=== PATIENT | female | born 1970 | race American Indian/Alaskan Native ===

== ENCOUNTER 2018-06-15 08:09 | Day surgery (SDC) | payer BC ==
[~2018-06-15 08:09] MED LIST: NACL 0.9% 1000 ML 1,000 ML IV SCH
[2018-06-15] MEDS ORDERED: ANCEF/STERILE WATER 2 GM/20 ML 2 GM/20 ML SYRINGE IV NR (09:00)
[2018-06-15 09:55] LABS: Basophils % (Auto) 0.4 % (0.0-1.8); Eosinophils # (Auto) 0.1 K/mm3 (0.0-0.4); Eosinophils % (Auto) 2.5 % (0.0-4.3); Hematocrit 37.7 % (30.3-42.9); Hemoglobin 12.3 gm/dl (10.1-14.3); Lymphocytes # (Auto) 1.6 K/mm3 (1.2-5.4); Lymphocytes % (Auto) 31.1 % (13.4-35.0); Mean Corpuscular HGB Conc 33 % (30-34); Mean Corpuscular Hemoglobin 27 pg (28-32); Mean Corpuscular Volume 84 fl (79-97); Monocytes # (Auto) 0.5 K/mm3 (0.0-0.8); Monocytes % (Auto) 9.9 % (0.0-7.3); Platelet Count 249 K/mm3 (140-440); Red Blood Count 4.51 M/mm3 (3.65-5.03); Red Cell Distribution Width 14.9 % (13.2-15.2)
[2018-06-15 10:09] LABS: INR 1.37 (0.87-1.13)
[2018-06-15 10:12] LABS: BUN/Creatinine Ratio 11; Blood Urea Nitrogen 8 mg/dL (7-17); Hemolysis Index 1
[2018-06-15] MEDS ORDERED: HEPARIN/NS 5000 UNIT/500ML(CATH LAB) 1,000 ML IR ONE (11:53)
[2018-06-15] MEDS ORDERED: HEPARIN 10,000 UNITS/10 ML ONE ×2 (11:53→13:33)
[2018-06-15] MEDS: VERSED ONE ×3 (12:22→13:50)
[2018-06-15] MEDS: SUBLIMAZE ONE ×4 (12:22→13:49)
[2018-06-15] MEDS: XYLOCAINE 2% INFILTRATI ONE ×2 (12:27→12:31)
[2018-06-15] MEDS: BENADRYL ONE ×2 (12:44→13:56)
[2018-06-15] MEDS ORDERED: XYLOCAINE 2% INFILTRATI ONE (12:51)
--- NOTE | 2018-06-15 14:45 | Operative Report ---
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 Operation: Bilateral ultrasound-guided venous access, upper thigh great saphenous vein on the left side and femoral vein proximally on the right side. Bilateral venogram. Intravascular ultrasound of distal IVC, bilateral common and external iliac, common femoral veins. Left common, external iliac and common femoral stenting with 16 x 90 Wallstent and extended with 16 x 60. Surgeon: Amy Castro. 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 Patient was suggested to have venogram for possible May Thurner syndrome and explained all risks, benefits and alternatives of procedure and shows to proceed, signed informed consent. Operative details: Patient was brought to the [facility] and placed in supine position. Bilateral femoral area and upper thigh medially were prepped and draped in sterile fashion. Timeout was performed. Right femoral vein proximally was accessed under ultrasound guidance with micropuncture needle and exchanged the micropuncture sheath. That was upsized to 5 Dominican access sheath. Next, left access was performed in the great saphenous vein was micropuncture needle however micropuncture wire could not be advanced. Patient had shellfish allergy and that this moment was premedicated with Benadryl and Solu-Medrol. Contrast was injected through micropuncture sheath and identified multiple collaterals in the common femoral varicosities and severe stenosis at the area. After multiple attempts Glidewire was successfully maneuvered through the occlusions into IVC. That was exchanged to a long Forte wire and 8 Dominican sheath was inserted. On the left side it was upsized to 8 Dominican access she is in plan for intravascular ultrasound. IVUS was done noting a lot of scarring and stenosis of the left side at the common femoral vein site and at proximal common iliac vein at typical May Thurner syndrome. At this point stenosis points were marked on the screen as well as venous confluence. Patient was heparinized with 3000 units of heparin. Left veins were predilated using 16 mm [place] balloon. 16 x 90 Wallstent was deployed proximally and extended with 16 x 60 wall stent into the common femoral stenotic segment. Then balloon angioplasty was 16 mm [place] balloon was performed inside stents. IVUS was done noting good stent opposition. Wires were removed and sheath were pulled, manual pressure held. Pressure dressing were applied. Patient tolerated procedure well.
--- NOTE | 2018-06-15 14:50 | Short Stay Summary ---
Short Stay Documentation Date of service: 06/15/18 - History H&P: obtained from office - Allergies and Medications Current Medications: Allergies povidone-iodine [From Betadine] Allergy (Severe, Verified 06/15/18 10:32) Anaphylaxis shellfish derived Allergy (Severe, Verified 06/15/18 10:32) Anaphylaxis soap [From Betadine] Allergy (Severe, Verified 06/15/18 10:32) Anaphylaxis Home Medications Medication Instructions Recorded Confirmed Last Taken Type Ibuprofen 800 mg PO PRN PRN 06/15/18 06/15/18 Unknown History Rivaroxaban [Xarelto] 20 mg PO DAILY 06/15/18 06/15/18 06/15/18 06:00 History cephALEXin [Cephalexin] 500 mg PO DAILY 06/15/18 06/15/18 2 Weeks Ago History ~06/01/18 Active Medications Cefazolin Sodium (Ancef/Sterile Water 2 Gm/20 Ml) 2 gm in 20 mls @ 80 mls/hr IV PREOP NR; Protocol Stop: 06/15/18 20:00 Sodium Chloride (Nacl 0.9% 1000 Ml) 1,000 mls @ 42 mls/hr IV DIRECT ARABELLA Last Admin: 06/15/18 10:11 Dose: 42 mls/hr - Brief post op/procedure progress note Date of procedure: 06/15/18 Pre-op diagnosis: May Barnes syndrome Procedure: Bilateral ultrasound-guided venous access, upper thigh great saphenous vein on the left side and femoral vein proximally on the right side. Bilateral venogram. Intravascular ultrasound of distal IVC, bilateral common and external iliac, common femoral veins. Left common, external iliac and common femoral stenting with 16 x 90 Wallstent and extended with 16 x 60. Anesthesia: MAC Findings: The webs and scar tissue with severe stenosis of common iliac, external iliac veins and common femoral vein on the left Surgeon: XENA CHIRINOS Estimated blood loss: none Pathology: none Condition: stable - Disposition Condition at discharge: Good Disposition: DC-01 TO HOME OR SELFCARE Short Stay Discharge Plan Diet: regular Wound: remove dressing (tomorrow) Special Instructions: no heavy lifting Follow up with: REAL LOZA MD [Primary Care Provider] - 7 Days XENA CHIRINOS DO [Staff Physician] - 14 Days Prescriptions: HYDROcodone/APAP 10-325 [Peetz 10/325] 1 each PO Q6HR PRN #28 tablet PRN Reason: Pain
[2018-06-15 17:00] VITALS: BP 142/79
== END 2018-06-15 16:45 | disposition home or self-care (01) ==
LOC: CATH 08:09 → CATHLABREC 08:09
PROVIDERS: ATTEND Surgery Vascular Surgery
DX: I70.8 Atherosclerosis of other arteries (principal); Q96.8 Other variants of Turner's syndrome; R63.5 Abnormal weight gain; Z68.42 Body mass index [BMI] 45.0-49.9, adult; Z88.8 Allergy status to other drugs, medicaments and biological substances; Z91.041 Radiographic dye allergy status; Z79.899 Other long term (current) drug therapy; Z91.013 Allergy to seafood; Z98.49 Cataract extraction status, unspecified eye; Z86.718 Personal history of other venous thrombosis and embolism; Z90.710 Acquired absence of both cervix and uterus; Z98.890 Other specified postprocedural states
CPT/HCPCS: 36415; 37238; 37239; 37252; 37253; 76937; 80048; 85025; 85610; 85730; 99156; 99157; C1725; C1753; C1769; C1876; C1894; J1200; J1644; J1720; J2250; J3010; J7030; Q9967